=== PATIENT | male | born 1985 | race African-American/Black ===

== ENCOUNTER → 2023-07-26 | Outpatient (REF) | LOC: M PLAIMG 11:50 | PROVIDERS: ATTEND Internal Medicine | DX: M54.50 Low back pain, unspecified (principal) ==

== ENCOUNTER 2025-03-15 23:03 | Observation (INO) | payer OTHER, BC ==
[~2025-03-15] VITALS: Ht 188 cm; Wt 125.9 kg
[~2025-03-15 23:03] MED LIST: ATOR80TA59 PO; HUMI40KI SC; JARD1TAB PO; METF500T13 PO; SERT50TA29 PO; VITA100093 PO
[2025-03-16] VITALS (8 sets, daily range): BP systolic 116–134; BP diastolic 55–67; TEMP 97.9–98.7; O2SAT 93–99
[2025-03-16] MEDS: PERCOCET 5MG/325MG TAB PO ONE (01:30)
[2025-03-16] MEDS ORDERED: ONDANSETRON 4MG/2ML VIAL IV PRN ×2 (01:45→11:10)
[2025-03-16] MEDS ORDERED: MOM 30 ML SUSPENSION UDC PO PRN (01:45)
[2025-03-16 01:54] LABS: BASO # 0.0 10^3/uL (0.0-0.2); BASO % 0.2 % (0.0-1.0); EOS # 0.1 10^3/uL (0.0-0.5); EOS % 0.8 % (0.0-3.0); LYMPH # 3.6 10^3/uL (1.5-5.0); LYMPH % 36.3 % (24.0-44.0); MONO # 0.9 10^3/uL (0.0-0.8); MONO % 8.8 % (2.0-8.0); NEUTROPHILS # 5.3 10^3/uL (1.5-8.5); NEUTROPHILS % 53.5 % (36.0-66.0); PLATELET COUNT, AUTOMATED 252 10^3/uL (150-450)
[2025-03-16 02:19] LABS: CALCIUM LEVEL 8.8 MG/DL (8.5-10.1); CARBON DIOXIDE LEVEL 27.0 MMOL/L (20-31); CHLORIDE LEVEL 102.0 MMOL/L (98-107); CREATININE FOR GFR 1.09 MG/DL (0.70-1.30); GLOMERULAR FILTRATION RATE 88.0 (>60); MAGNESIUM LEVEL 2.0 MG/DL (1.8-2.4); POTASSIUM SERUM 4.5 MMOL/L (3.5-5.1); SODIUM LEVEL 137.0 MMOL/L (136-145)
[2025-03-16] MEDS: NS (Normal Saline) 0.9% 1,000 ML IV SCH (02:44)
[2025-03-16] MEDS: PERCOCET 5MG/325MG TAB PO PRN (05:12)
[2025-03-16] MEDS ORDERED: dexAMETHasone 4 MG/ML 1 ML VIAL As Ordered ONE (07:40)
[2025-03-16] MEDS ORDERED: LIDOCAINE 2% 100 MG/5 ML SDV (FOR ANES.) As Ordered ONE (07:40)
[2025-03-16] MEDS ORDERED: MIDAZOLAM INJ 2 MG/2 ML VIAL As Ordered ONE (07:40)
[2025-03-16] MEDS ORDERED: dexmedeTOMIDine (4 MCG/ML) 200 MCG/50 ML BTL As Ordered ONE (07:40)
[2025-03-16] MEDS ORDERED: ONDANSETRON 4MG/2ML VIAL As Ordered ONE (07:40)
[2025-03-16] MEDS ORDERED: ACETAMINOPHEN 1000MG/100ML IV BAG As Ordered ONE (07:41)
[2025-03-16] MEDS ORDERED: JARD1TAB3 PO (08:27)
[2025-03-16] MEDS ORDERED: ZOLO100T PO (08:28)
[2025-03-16] MEDS ORDERED: CETI-24 PO (08:29)
[2025-03-16] MEDS ORDERED: VENL-115 PO (08:33)
[2025-03-16] MEDS ORDERED: HOME MED LIST COMPLETE! XX SCH (08:35)
[2025-03-16] MEDS: TRANEXAMIC ACID 100 MG/ML 10ML VIAL As Ordered ONE (10:02)
[2025-03-16] MEDS ORDERED: KETOROLAC 30 MG/ML 1 ML VIAL As Ordered ONE (10:46)
[2025-03-16] MEDS: VANCOMYCIN 1000MG/20ML VIAL As Ordered ONE (11:03)
[2025-03-16] MEDS ORDERED: MORPHINE 2 MG/ML 1 ML VIAL IV PRN (11:10)
[2025-03-16] MEDS: HYDROMORPHONE HCL 0.5 MG/0.5 ML SYRINGE IV PRN (11:57)
[2025-03-16] MEDS ORDERED: ENOXAPARIN 40 MG/0.4 ML SYRINGE (J1650 PER 10MG) SC SCH (16:00)
[2025-03-17 00:50] VITALS: BP 126/58; TEMP 98.9; O2SAT 98
[2025-03-17 03:55] VITALS: BP 112/61; TEMP 98.3; O2SAT 97
[2025-03-17 07:05] LABS: PLATELET COUNT, AUTOMATED 229 10^3/uL (150-450)
[2025-03-17 07:21] LABS: ALT/SGPT 19.0 U/L (7.0-40); AST/SGOT 21.0 U/L (<34); CALCIUM LEVEL 8.5 MG/DL (8.5-10.1); CARBON DIOXIDE LEVEL 30.0 MMOL/L (20-31); CHLORIDE LEVEL 103.0 MMOL/L (98-107); CREATININE FOR GFR 1.1 MG/DL (0.70-1.30); GLOMERULAR FILTRATION RATE 87.0 (>60); MAGNESIUM LEVEL 1.8 MG/DL (1.8-2.4); POTASSIUM SERUM 4.0 MMOL/L (3.5-5.1); SODIUM LEVEL 140.0 MMOL/L (136-145)
[2025-03-17] MEDS: ACETAMINOPHEN 325 MG TAB PO PRN (08:42)
[2025-03-17] MEDS: CETIRIZINE 10 MG TAB PO SCH (08:42)
[2025-03-17] MEDS: ATORVASTATIN 20 MG TAB PO SCH (08:42)
[2025-03-17] MEDS: ASPIRIN 81 MG CHEWABLE TABLET PO SCH (08:42)
[2025-03-17] MEDS: SERTRALINE 100 MG TAB PO SCH (08:42)
[2025-03-17] MEDS: ceFAZolin SODIUM 2 GM in DEXTROSE 5% (D5W) ADV/MINI-BAG 50 ML IV SCH (10:14)
[2025-03-17 12:00] VITALS: BP 103/57; TEMP 98.6; O2SAT 94
[2025-03-17] MEDS ORDERED: ACET-683 PO (15:03)
[2025-03-17] MEDS ORDERED: ASPI81CH8 PO (15:03)
[2025-03-17] MEDS ORDERED: OXYC1SOL3 PO (15:03)
[2025-03-17] MEDS ORDERED: CEFD1CAP9 PO (15:03)
[2025-03-17] MEDS ORDERED: IBUP-1114 PO (15:03)
[2025-03-17] MEDS ORDERED: OXYC-517 PO (15:38)
[2025-03-17] MEDS: CEFDINIR 300 MG CAP PO ONE (15:58)
[2025-03-17] MEDS ORDERED: VENLAFAXINE **XR** 75MG CAPSULE PO SCH (21:00)
== END 2025-03-17 16:21 | disposition home or self-care (01) ==
LOC: M ED 23:03 → M ED INP 23:04 → M MSPAV 03-16 02:37
PROVIDERS: ADMIT Internal Medicine; ATTEND Student in an Organized Health Care Education/Training Program
DX: S86.111A Strain of other muscle(s) and tendon(s) of posterior muscle group at lower leg level, right leg, initial encounter (principal); Y04.0XXA Assault by unarmed brawl or fight, initial encounter; Y92.410 Unspecified street and highway as the place of occurrence of the external cause; Y93.89 Activity, other specified; L40.50 Arthropathic psoriasis, unspecified; E11.9 Type 2 diabetes mellitus without complications; R03.0 Elevated blood-pressure reading, without diagnosis of hypertension; E66.9 Obesity, unspecified; E78.5 Hyperlipidemia, unspecified; F32.A Depression, unspecified; G47.33 Obstructive sleep apnea (adult) (pediatric); G43.909 Migraine, unspecified, not intractable, without status migrainosus; Z79.899 Other long term (current) drug therapy; Z79.84 Long term (current) use of oral hypoglycemic drugs
CPT/HCPCS: 27380; 36415; 71045; 73564; 76000; 80048; 80053; 83735; 85025; 85027; 86850; 86900; 86901; 93005; 96374; 97116; 97161; 99284; C1713; G0378; J0131; J0665; J0688; J1100; J1171; J1885; J2250; J2405; J3010; J3373